=== PATIENT | male | born 1990 | race African-American/Black ===

== ENCOUNTER 2021-05-01 02:05 | Emergency (ER) | payer SELFPAY ==
[~2021-05-01] VITALS: Ht 172.7 cm; Wt 55.0 kg
[2021-05-01 02:32] VITALS: BP 155/99
--- NOTE | 2021-05-01 03:12 | ED General ---
General Chief Complaint: Substance Abuse Stated Complaint: COUGHING/SNEEZING UP BLOOD,BEEN DRINKING Nursing Triage Note: Pt ambulatory into ER with request to be placed in inpatient alcohol facility. Pt states that for the last 15 years he has been drinking at least a 12 pack per day. Pt states that he will drink anything with an alcohol content. Pt states that just [employer]EV[employer]URNER he drank beer, drank vodka shots, and also had some fireball whiskey. Pt states that he knows he needs to be in a treatment facility. PT states that he has also been coughing up blood from time to time over the last several years, and also occasionally passes bloody stools. Pt is mostly concerned with wanting inpatient treatment. Pt states that he doesn't want "kicked out of here with papers saying hes a fucking alcoholic". Pt states that he knows and wants help for his problem. Past Kmouhud-Lglkuw-Glveqa Hx Patient Social History Tobacco Use?: Yes Tobacco type used: Cigarettes Smoking Status: Current Everyday Smoker Use of E-Cig and/or Vaping dev: No Substance use?: Yes Substance type: Marijuana, Other Additional substance use comme: Sometimes uses, wouldn't divuldge further. Substance frequency: Several times a month Alcohol Use?: Yes Alcohol type: Beer, Hard Liquor, Wine Alcohol Frequency: Daily Pt feels they are or have been: No Immunizations Up To Date Influenza Vaccine Up-to-Date: No; Not Current Physical Exam Vital Signs Vital Signs - First Documented 05/01/21 02:32 Temp 36.6 Pulse 78 Resp 20 B/P (MAP) 155/99 (117) Pulse Ox 96 O2 Delivery Room Air Capillary Refill : Less Than 3 Seconds Height, Weight, BMI Height: '" Weight: lbs. oz. kg; 18.00 BMI Method: Progress/Results/Core Measures Suspected Sepsis SIRS Temperature: Pulse: 78 Respiratory Rate: 20 Blood Pressure 155 /99 Mean: 117 Results/Orders My Orders Orders - MICAH GONSALES DO Influenza A And B By Pcr (05/01/21 02:36) Covid 19 Inhouse Test (05/01/21 02:36) Vital Signs/I&O 05/01/21 02:32 Temp 36.6 Pulse 78 Resp 20 B/P (MAP) 155/99 (117) Pulse Ox 96 O2 Delivery Room Air Capillary Refill : Less Than 3 Seconds Blood Pressure Mean: 117 Departure Impression Primary Impression: Alcohol abuse Disposition: 01 HOME, SELF-CARE Condition: Stable Departure-Patient Inst. Decision time for Depature: 03:08 Referrals: NO,LOCAL PHYSICIAN (PCP/Family) Primary Care Physician Patient Instructions: ALCOHOL AND SUBSTANCE ABUSE Add. Discharge Instructions: CALL [facility] IN THE MORNING [phone], OR [facility] [phone] TO [facility] IN ADDICTION TREATMENT PROGRAM All discharge instructions reviewed with patient and/or family. Voiced understanding. MICAH GONSALES DO May 01, 2021 03:12
== END 2021-05-01 03:15 | disposition home or self-care (01) ==
LOC: EDUNIT# 02:05 → ER 02:12
DX: F10.10 Alcohol abuse, uncomplicated (principal); F17.210 Nicotine dependence, cigarettes, uncomplicated
CPT/HCPCS: 99281